=== PATIENT | female | born 1990 | race Caucasian/White ===

== ENCOUNTER 2017-09-16 13:59 | Emergency (ER) | payer BC, OTHER ==
[~2017-09-16] VITALS: Ht 157.5 cm; Wt 77.6 kg
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
--- NOTE | 2017-09-16 14:12 | ED Trauma-Multisystem ---
General Stated Complaint: THROWN FROM HORSE History of Present Illness Date Seen by Provider: Sep 16, 2017 Time Seen by Provider: 14:07 Initial Comments Patient is a 27-year-old female who was brought in by [facility] with complaints head and neck pain after being bucked off a horse. Patient is alert and oriented on arrival and reports that she was thrown over the front of the horse landing on the top of her head. She denies LOC, numbness and tingling in any of her extremities. There is possibility of . Occurred: Just Prior to Arrival Pain/Injury Location: Head, Neck Loss of Consciousness: No Loss of Consciousness Associated Symptoms (Fall): Denies Symptoms Allergies and Home Medications Patient Home Medication List Home Medication List Reviewed: Yes Constitutional: no symptoms reported, see HPI Eyes: No Symptoms Reported, See HPI Ears: No Symptoms Reported, See HPI Nose: No Symptoms Reported, See HPI Mouth: No Symptoms Reported Throat: No Symptoms to Report, See HPI Respiratory: no symptoms reported, see HPI Cardiovascular: No Symptoms Reported, See HPI Gastrointestinal: no symptoms reported, see HPI Genitourinary: no symptoms reported, see HPI Musculoskeletal: see HPI, neck pain Skin: no symptoms reported, see HPI Psychiatric/Neurological: No Symptoms Reported, See HPI Physical Exam General Appearance: No Apparent Distress, WD/WN Head: No Evidence of Injury Eyes: Bilateral Eye PERRL, Bilateral Eye EOMI Ears, Nose, Throat: Hearing Grossly Normal, No Evidence of ENT Injury, No Dental Injury Neck: Other (midthoracic pain on palpation ) Cardiovascular: Regular Rate, Rhythm, No Edema, No Gallop, No JVD, No Murmur, Normal Peripheral Pulses Respiratory: Chest Non Tender, Lungs Clear, Normal Breath Sounds, No Accessory Muscle Use, No Respiratory Distress Gastrointestinal: Normal Bowel Sounds, Non Tender, Soft Back: Other (midthoracic tenderness) Extremity: Normal Capillary Refill, Normal Inspection, Normal Range of Motion, Non Tender Neurologic/Psychiatric: Alert, Oriented x3, Normal Mood/Affect Skin: Normal Color, Warm/Dry Lymphatic: No Adenopathy Progress/Results/Core Measures Results/Orders Lab Results Laboratory Tests Test 09/16/17 14:06 09/16/17 17:09 Range/Units White Blood Count 11.6 H 4.3-11.0 10^3/uL Red Blood Count 4.10 L 4.35-5.85 10^6/uL Hemoglobin 12.6 11.5-16.0 G/DL Hematocrit 36 35-52 % Mean Corpuscular Volume 88 80-99 FL Mean Corpuscular Hemoglobin 31 25-34 PG Mean Corpuscular Hemoglobin Concent 35 32-36 G/DL Red Cell Distribution Width 12.6 10.0-14.5 % Platelet Count 289 130-400 10^3/uL Mean Platelet Volume 10.3 7.4-10.4 FL Neutrophils (%) (Auto) 69 42-75 % Lymphocytes (%) (Auto) 19 12-44 % Monocytes (%) (Auto) 10 0-12 % Eosinophils (%) (Auto) 2 0-10 % Basophils (%) (Auto) 0 0-10 % Neutrophils # (Auto) 8.0 H 1.8-7.8 X 10^3 Lymphocytes # (Auto) 2.2 1.0-4.0 X 10^3 Monocytes # (Auto) 1.1 H 0.0-1.0 X 10^3 Eosinophils # (Auto) 0.2 0.0-0.3 10^3/uL Basophils # (Auto) 0.0 0.0-0.1 10^3/uL Human Chorionic Gonadotropin, Quant 12288 H <5 MIU/ML Serum Test, Qualitative POSITIVE NEGATIVE Urine Color YELLOW Urine Clarity CLEAR Urine pH 6 5-9 Urine Specific [place] 1.010 L 1.016-1.022 Urine Protein NEGATIVE NEGATIVE Urine Glucose (UA) NEGATIVE NEGATIVE Urine Ketones 2+ H NEGATIVE Urine Nitrite NEGATIVE NEGATIVE Urine Bilirubin NEGATIVE NEGATIVE Urine Urobilinogen NORMAL NORMAL MG/DL Urine Leukocyte Esterase 1+ H NEGATIVE Urine RBC (Auto) NEGATIVE NEGATIVE Urine RBC NONE /HPF Urine WBC RARE /HPF Urine Squamous Epithelial Cells 25-50 H /HPF Urine Crystals NONE /LPF Urine Bacteria FEW H /HPF Urine Casts NONE /LPF Urine Mucus NEGATIVE /LPF Urine Culture Indicated NO My Orders Orders - MIGUE PARK APRN Hcg,Qualitative Serum (09/16/17 14:06) Mri Brain W/O Contrast (09/16/17 14:35) Mri Cervical Spine W/O Contras (09/16/17 14:35) Mri Thoracic Spine W/O Con (09/16/17 14:35) Cbc With Automated Diff (09/16/17 14:36) Hcg,Quantitative (09/16/17 14:36) Us Ob Single Fetus<14 [id number] (09/16/17 15:27) Ua Culture If Indicated (09/16/17 16:41) Departure Impression Impression: Primary Impression: Incidental intrauterine Additional Impression: Cervical spine strain Disposition: 01 HOME, SELF-CARE Condition: Stable Departure-Patient Inst. Referrals: NO,LOCAL PHYSICIAN (PCP/Family) Primary Care Physician MIGUE PARK APRN Sep 16, 2017 14:12
[2017-09-16 14:54] LABS: BASOPHILS % (AUTO) 0 % (0-10); EOSINOPHILS # (AUTO) 0.2 10^3/uL (0.0-0.3); EOSINOPHILS % (AUTO) 2 % (0-10); HEMATOCRIT 36 % (35-52); HEMOGLOBIN 12.6 G/DL (11.5-16.0); LYMPHOCYTES # (AUTO) 2.2 X 10^3 (1.0-4.0); LYMPHOCYTES % (AUTO) 19 % (12-44); MEAN CORPUSCULAR HEMOGLOBIN 31 PG (25-34); MEAN CORPUSCULAR HGB CONC 35 G/DL (32-36); MEAN CORPUSCULAR VOLUME 88 FL (80-99); MEAN PLATELET VOLUME 10.3 FL (7.4-10.4); MONOCYTES # (AUTO) 1.1 X 10^3 (0.0-1.0); MONOCYTES % (AUTO) 10 % (0-12); NEUTROPHILS % (AUTO) 69 % (42-75); PLATELET COUNT 289 10^3/uL (130-400); RED CELL DISTRIBUTION WIDTH 12.6 % (10.0-14.5); WHITE BLOOD COUNT 11.6 10^3/uL (4.3-11.0)
--- NOTE | 2017-09-16 15:43 | Diagnostic Imaging Report ---
CLINICAL INDICATION: Patient was thrown from a horse, landed on back hitting back of head. No headaches. Patient complains upper back pain and some neck pain. EXAM: MRI of the brain performed without IV contrast. Sequences include axial DWI, ADC map, axial T2, axial FLAIR, axial T1, axial gradient echo, and sagittal T1. COMPARISON: None. FINDINGS: There is no evidence of acute cerebral infarct, intracranial hemorrhage, or gross mass effect. The brain parenchymal volume appears appropriate for patient's age. There is normal villar-white matter distinction. There is no significant midline shift or herniation. The [place] vascular structures show no gross abnormality as visualized. There is no evidence of hydrocephalus. The basal cisterns are unremarkable. The skull, extracranial soft tissue, and orbits are unremarkable. There is minimal mucosal thickening involving the ethmoid sinus. There is minimal fluid in the right mastoid air cells. IMPRESSION: There is minimal ethmoid sinus mucosal thickening and minimal fluid in the right mastoid air cells. Otherwise unremarkable MRI of the brain. Dictated by: Dictated on workstation # [id number]
--- NOTE | 2017-09-16 15:59 | Diagnostic Imaging Report ---
CLINICAL INDICATION: Patient was thrown from horse, landed on back hitting back of head. Patient has no headaches and no arm/leg pain. Patient complains of upper back pain and some neck pain. EXAM: MRI of the cervical spine performed without IV contrast. Sequences include sagittal T2, sagittal T1, sagittal T2 fat-sat, axial T2. COMPARISON: None. FINDINGS: Of note, the sagittal T2 fat-sat sequence is not fully fat suppressed. Cervical spine has normal alignment and no acute fracture or dislocation. There is no vertebral body marrow edema or abnormal signal. Limited visualization of the posterior fossa is unremarkable. Cervical spinal cord has normal cord caliber and signal. The intervertebral disc heights are well-maintained. There is no disc bulge or annular tear seen. There is no significant degenerative changes. There is no significant central spinal canal or neural foramen narrowing. IMPRESSION: Unremarkable MRI of the cervical spine. Dictated by: Dictated on workstation # [id number]
--- NOTE | 2017-09-16 16:29 | Diagnostic Imaging Report ---
CLINICAL INDICATION: Patient was thrown from a horse. Patient landed on back hitting back of head. No headaches, no arm/leg pain. Patient complains of upper back pain and some neck pain. EXAM: MRI of the thoracic spine performed without IV contrast. Sequences include sagittal T1, sagittal T2, sagittal T2 fat-sat, and axial T2. COMPARISON: None. FINDINGS: Of note, there is incomplete fat saturation on the sagittal T2 fat-sat sequence. Thoracic spine has normal alignment with no fracture or dislocation. There is no abnormal paraspinal soft tissue signal or abnormality. The thoracic spinal cord has normal anatomic appearance with no abnormal cord signal. The thoracic vertebra have normal signal characteristics. The intervertebral disk heights are well-preserved. There is no significant central spinal canal or neural foramen narrowing. IMPRESSION: Unremarkable MRI of the thoracic spine. Dictated by: Dictated on workstation # [id number]
[2017-09-16 17:17] LABS: BILIRUBIN,URINE NEGATIVE (NEGATIVE); CLARITY,URINE CLEAR; COLOR,URINE YELLOW; GLUCOSE, URINE (UA) NEGATIVE (NEGATIVE); KETONES,URINE 2+ (NEGATIVE); LEUKOCYTE ESTERASE ,URINE 1+ (NEGATIVE); NITRITE,URINE NEGATIVE (NEGATIVE); PH,URINE 6 (5-9); PROTEIN,URINE NEGATIVE (NEGATIVE); UROBILINOGEN,URINE NORMAL (NORMAL)
--- NOTE | 2017-09-16 17:22 | Diagnostic Imaging Report ---
PROCEDURE: US OB SINGLE FETUS <14 WKS. TECHNIQUE: Multiple real-time grayscale images were obtained over the gravid uterus in various projections. INDICATION: Trauma, fall from horse. . COMPARISON: None. FINDINGS: A single live intrauterine gestation is seen, with a heart rate of 122 bpm. The crown rump length is 0.76 cm, corresponding with 6 weeks and 5 days gestation. The gestational sac has a normal appearance, oval in shape. The ovaries appear normal bilaterally, with normal vascularity. No subchorionic hemorrhage is seen. The uterus is otherwise unremarkable. The bladder is moderately distended. No free fluid is seen. IMPRESSION: 1. Single live intrauterine gestation measuring at 6 weeks and 5 days, with a heart rate of 122 bpm. Dictated by: Dictated on workstation # [id number]
[2017-09-16 17:30] LABS: BACTERIA,URINE FEW /HPF; SQUAMOUS EPITHELIAL CELL,UR 25-50 /HPF; WBC,URINE RARE /HPF
[2017-09-16 17:45] VITALS: BP 130/89
== END 2017-09-16 17:45 | disposition home or self-care (01) ==
LOC: ER 14:01
DX: S13.4XXA Sprain of ligaments of cervical spine, initial encounter (principal); Z33.1 Pregnant state, incidental; V80.010A Animal-rider injured by fall from or being thrown from horse in noncollision accident, initial encounter
CPT/HCPCS: 36415; 70551; 72141; 72146; 76801; 81000; 84702; 84703; 85025

== ENCOUNTER 2018-05-06 22:56 | Inpatient (IN) | payer BC ==
[~2018-05-06] VITALS: Ht 157.5 cm; Wt 89.9 kg
[2018-05-06 23:25] VITALS: BP 124/82
[2018-05-06] MEDS ORDERED: OXYTOCIN/NORMAL SALINE 500 ML IV SCH (23:30)
[2018-05-07] VITALS (34 sets, daily range): BP systolic 102–147; BP diastolic 52–93
[2018-05-07 01:01] LABS: BASOPHILS % (AUTO) 0 % (0-10); EOSINOPHILS # (AUTO) 0.1 10^3/uL (0.0-0.3); EOSINOPHILS % (AUTO) 1 % (0-10); HEMATOCRIT 32 % (35-52); HEMOGLOBIN 10.4 G/DL (11.5-16.0); LYMPHOCYTES # (AUTO) 1.7 X 10^3 (1.0-4.0); LYMPHOCYTES % (AUTO) 15 % (12-44); MEAN CORPUSCULAR HEMOGLOBIN 29 PG (25-34); MEAN CORPUSCULAR HGB CONC 33 G/DL (32-36); MEAN CORPUSCULAR VOLUME 88 FL (80-99); MEAN PLATELET VOLUME 10.7 FL (7.4-10.4); MONOCYTES # (AUTO) 0.8 X 10^3 (0.0-1.0); MONOCYTES % (AUTO) 7 % (0-12); NEUTROPHILS # (AUTO) 8.6 X 10^3 (1.8-7.8); NEUTROPHILS % (AUTO) 77 % (42-75); PLATELET COUNT 277 10^3/uL (130-400); RED CELL DISTRIBUTION WIDTH 13.9 % (10.0-14.5); WHITE BLOOD COUNT 11.2 10^3/uL (4.3-11.0)
[2018-05-07] MEDS: D5 LR IV SOLUTION 1,000 ML IV SCH ×2 (01:11→07:37)
[2018-05-07] MEDS ORDERED: LACTATED RINGERS 1,000 ML IV ONE (02:49)
[2018-05-07] MEDS ORDERED: SUFENTA 0.6MCG/ML BUPIVA 0.125 100 ML ONE (03:16)
[2018-05-07] MEDS ORDERED: BUPIVACAINE 0.25% 30 ML (SENSORCAINE) VIAL ONE (03:42)
[2018-05-07] MEDS ORDERED: fentaNYL INJECTION 100 MCG/2 ML AMP ONE ×2 (03:42→09:26)
[2018-05-07] MEDS ORDERED: METOCLOPRAMIDE INJ 10 MG/2 ML (REGLAN) IV PRN (04:30)
[2018-05-07] MEDS ORDERED: ONDANSETRON 4 MG/2 ML (SDV) Z0FRAN IV PRN (04:30)
[2018-05-07] MEDS ORDERED: diphenhydrAMINE 50 MG/ML INJ (BENADRYL) IV PRN (04:30)
[2018-05-07] MEDS ORDERED: NALOXONE 0.4 MG/ML 1 ML (NARCAN) VIAL IV PRN ×2 (04:30)
[2018-05-07] MEDS ORDERED: EPIDURAL (SUFENTA 0.6MCG/ML BUPIVA 0.125%) 100 ML BAG EPI PRN (04:30)
[2018-05-07] MEDS ORDERED: CATHETER FLUSH 10 ML SYR IV SCH ×2 (06:00→14:00)
[2018-05-07] MEDS ORDERED: CITRIC ACID/SOB CIT (BICITRA) 30 ML UDC ONE (08:57)
[2018-05-07] MEDS ORDERED: FAMOTIDINE 20MG/2ML IV (PEPCID) ONE (08:57)
[2018-05-07] MEDS: LACTATED RINGERS 1,000 ML IV SCH ×2 (08:59→09:44)
[2018-05-07] MEDS ORDERED: ceFAZolin 2 GM IV Premixed 50 ML ONE (09:05)
[2018-05-07] MEDS ORDERED: OXYTOCIN/NORMAL SALINE 500 ML IV SCH (09:06)
--- NOTE | 2018-05-07 09:09 | History & Physical-OB ---
OB - Chief Complaint & HPI Date/Time Date of Admission: Date of Admission: Date seen by a Provider: May 07, 2018 Time Seen by a Provider: 07:30 Chief Complaint/History OB-Reason for Admission/Chief: Onset of Labor Hx : 1 Hx Para: 0 Expected Date of Delivery: May 11, 2018 Gestational Age in Weeks: 39 Gestational Age in Days: 2 Admission Nurse Assessment Rev: Yes History of Labs AB pos Antibody neg RI RPR NR HBsAg NR HIV NR GC neg GBS neg Allergies and Home Medications Allergies Coded Allergies: naproxen (Verified Allergy, Unknown, 05/06/18) Home Medications No Active Prescriptions or Reported Meds Patient Home Medication List Home Medication List Reviewed: Yes OB - History Hx of Present Care: Yes Ultrasounds: Normal mid trimester US Obstetrical Complications: None Medical Complications: None Patient Past Medical History n/a Social History/Family History HIV/AIDS: No Recent Infectious Disease Expo: No Sexually Transmitted Disease: Yes (chlamidia- 2009) Alcohol Use: Denies Use Recreational Drug Use: No Immunizations Hepatitis A: Yes Hepatitis B: Yes Tetanus Booster (TDap): Less than 5yrs Date of Influenza Vaccine: May 03, 2018 OB - Admission Exam Physical Exam Vitals: Vital Signs 05/07/18 05/07/18 07:30 08:30 Temp 97.9 Pulse 85 Resp 18 B/P (MAP) 114/57 (76) Pulse Ox 100 O2 Delivery Non Rebreather O2 Flow Rate 15.00 HEENT: NCAT Heart: Rhythm Normal Lungs: Clear Abdomen: Gravid Extremities: Normal Reflexes: Normal Cervical Dilatation: 3cm Effacement: 75% Station: -2 Membranes: Ruptured Amniotic Fluid: Clear Heart Rate: 130's Accelerations: Accelerations Present Decelerations: No Decelerations Short Term Variability: Present Long-Term Variability: Average (6-25) Contractions on Admission: < 5 Minutes Apart Intensity: Moderate Labs Laboratory Tests Test 05/07/18 00:45 Range/Units White Blood Count 11.2 H 4.3-11.0 10^3/uL Red Blood Count 3.60 L 4.35-5.85 10^6/uL Hemoglobin 10.4 L 11.5-16.0 G/DL Hematocrit 32 L 35-52 % Mean Corpuscular Volume 88 80-99 FL Mean Corpuscular Hemoglobin 29 25-34 PG Mean Corpuscular Hemoglobin Concent 33 32-36 G/DL Red Cell Distribution Width 13.9 10.0-14.5 % Platelet Count 277 130-400 10^3/uL Mean Platelet Volume 10.7 H 7.4-10.4 FL Neutrophils (%) (Auto) 77 H 42-75 % Lymphocytes (%) (Auto) 15 12-44 % Monocytes (%) (Auto) 7 0-12 % Eosinophils (%) (Auto) 1 0-10 % Basophils (%) (Auto) 0 0-10 % Neutrophils # (Auto) 8.6 H 1.8-7.8 X 10^3 Lymphocytes # (Auto) 1.7 1.0-4.0 X 10^3 Monocytes # (Auto) 0.8 0.0-1.0 X 10^3 Eosinophils # (Auto) 0.1 0.0-0.3 10^3/uL Basophils # (Auto) 0.0 0.0-0.1 10^3/uL OB - Assessment/Plan/Diagnosis Assessment Assessment: active labor Admission Dx 27 yo @ 39.2 Active labor SROM GBS neg Admission Status: Inpatient Order (span 2 midnights) Reason for Inpatient Admission: Active labor at term Plan Plan: Expectant Management LINDSAY ANTONY DO May 07, 2018 9:09 am
--- NOTE | 2018-05-07 09:12 | Progress Note-Standard ---
Standard Progress Note Progress Notes/Assess & Plan Date Seen by a Provider: May 07, 2018 Time Seen by a Provider: 09:00 Progress/Assessment & Plan Laboratory Tests Test 05/07/18 00:45 Range/Units White Blood Count 11.2 H 4.3-11.0 10^3/uL Red Blood Count 3.60 L 4.35-5.85 10^6/uL Hemoglobin 10.4 L 11.5-16.0 G/DL Hematocrit 32 L 35-52 % Mean Corpuscular Volume 88 80-99 FL Mean Corpuscular Hemoglobin 29 25-34 PG Mean Corpuscular Hemoglobin Concent 33 32-36 G/DL Red Cell Distribution Width 13.9 10.0-14.5 % Platelet Count 277 130-400 10^3/uL Mean Platelet Volume 10.7 H 7.4-10.4 FL Neutrophils (%) (Auto) 77 H 42-75 % Lymphocytes (%) (Auto) 15 12-44 % Monocytes (%) (Auto) 7 0-12 % Eosinophils (%) (Auto) 1 0-10 % Basophils (%) (Auto) 0 0-10 % Neutrophils # (Auto) 8.6 H 1.8-7.8 X 10^3 Lymphocytes # (Auto) 1.7 1.0-4.0 X 10^3 Monocytes # (Auto) 0.8 0.0-1.0 X 10^3 Eosinophils # (Auto) 0.1 0.0-0.3 10^3/uL Basophils # (Auto) 0.0 0.0-0.1 10^3/uL This 27-year-old presented in active labor with spontaneous rupture membranes at 9 p.m. last night. The patient was noted to be ulysses regularly however augmentation was started after the patient was admitted due to a dysfunctional contraction pattern. Throughout the night the patient continued to have repetitive prolonged decelerations into the 50s. This happened on 3 separate occasions. This morning on evaluation the patient was found to be 6 cm dilated however station still considerably high at -2. We attempted to augment her labor again this morning after stopping the Pitocin last night due to intolerance in the form of prolonged heart rate deceleration. About 1 hour after starting 2 milliunits of Pitocin another prolonged deceleration lasting approximately 6 minutes down to the 50s to 60s was noted, I was present to evaluate the patient and placed a scalp electrode to confirm heart rate tracing. The patient continued to still be remote from delivery I discussed the patient proceeding with emergency due to intolerance of labor. Risk of the procedure was discussed the patient in detail all of her questions were answered and consent was obtained bedside by the nurses the OR crew was contacted. We will proceed as soon as possible when OR crew is available and ready LINDSAY ANTONY DO May 07, 2018 9:12 am
[2018-05-07] MEDS ORDERED: TETANUS,DIPTH,PERTUSS P/F (BOOSTRIX) 0.5 ML VIAL IM SCH (09:15)
[2018-05-07] MEDS ORDERED: MEASLES,MUMPS,RUBELLA 1 EA INJ SC SCH (09:15)
[2018-05-07] MEDS ORDERED: HYDROmorphone 2 MG/ML VIAL (DILAUDID) IV PRN (09:15)
[2018-05-07] MEDS ORDERED: ONDANSETRON 4 MG/2 ML (SDV) Z0FRAN IVP PRN (09:15)
[2018-05-07] MEDS ORDERED: LIDOCAINE PF 2% 5 ML (XYLOCAINE) VIAL ONE (09:24)
--- NOTE | 2018-05-07 09:45 | Discharge Inst-Women's Service ---
Discharge Inst-Women's Serv Depart Medication/Instructions New, Converted or Re-Newed RX: RX on Chart Consults/Follow Up Additional Follow Up: Yes Orders/Referrals Dr. Astorga in 7-10 days and in 6 weeks Activity Activity: Activity as Tolerated Driving Instructions: No Driving for 1 Week NO SMOKING: NO SMOKING Nothing Inside Vagina: No Douching, No [place], No Tampons Diet Discharge Diet: No Restrictions Symptoms to Report to : Bleeding Excessive, Pain Increased, Fever Over 101 Degrees F, Vaginal Bleeding Increase, Questions/Concerns For Any Problems or Questions: Contact Your Physician Skin/Wound Care Infection Signs and Symptoms: Increased Redness, Foul Odor of Wound, Increased Drainage, Skin Itchy or Has a Rash, Increased Swelling, Temperature Above 101 F Operative Area Clean and Dry: Keep Incision Clean/Dry Stitches/Chip/Dermabond: Dermabond, Care of Stitches Bathing Instructions: LINDSAY Horvath DO May 07, 2018 09:45
[2018-05-07] MEDS ORDERED: IBUP-844 PO (09:46)
[2018-05-07] MEDS ORDERED: ACHD5005 PO (09:46)
[2018-05-07] MEDS ORDERED: DOCU100C37 PO (09:46)
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
[2018-05-07] MEDS ORDERED: DEXAMETHASONE 10 MG/ML (DECADRON) 1 ML VIAL ONE (10:31)
[2018-05-07] MEDS ORDERED: ONDANSETRON 4 MG/2 ML (SDV) Z0FRAN ONE (10:31)
[2018-05-07] MEDS ORDERED: OXYTOCIN/NORMAL SALINE 1,000 ML IV ONE (10:31)
[2018-05-07] MEDS: KETOROLAC 30 MG/ML VIAL IVP SCH ×3 (11:55→23:34)
[2018-05-07] MEDS: HYDROcodone/APAP 5 MG/325 MG (LORTAB) TAB PO PRN ×2 (15:12→20:25)
--- NOTE | 2018-05-07 15:37 | OPERATIVE REPORT ---
DATE OF SERVICE: 05/07/2018 PREOPERATIVE DIAGNOSES: 1. A 27-year-old G1, P0 at 39 weeks and 2 days' gestation. 2. intolerance of labor. POSTOPERATIVE DIAGNOSES: 1. A 27-year-old G1, P0 at 39 weeks and 2 days' gestation. 2. intolerance of labor. PROCEDURE PERFORMED: Primary low transverse section. SURGEON: Luis Antony DO. ANESTHESIA: Epidural, which was bolused. ESTIMATED BLOOD LOSS: 400 mL. URINE OUTPUT: 400 mL clear at the end of the procedure. FLUIDS: 1100 mL lactated Ringer solution. FINDINGS: A live male , weight was pending and Apgars of 9 and 9. Grossly normal appearing uterus, bilateral fallopian tubes and ovaries. INDICATIONS FOR PROCEDURE: Please see my preoperative note for complete details pertaining to indications. There were repetitive prolonged decelerations of the heart rate down to the 50s. Briefly, the indication for was discussed due to the patient being remote from delivery. She was still 6 cm and -2 station with quite a bit of station to go before delivering vaginally. INDICATIONS: After indication was discussed, risks of the procedure were discussed with the patient in detail including risk of bleeding, infection, damage to surrounding structures including, but not limited to bowel, bladder, ureter, kidneys, possible postoperative complications, postoperative recovery timeframe, risk from anesthesia and need for possible blood transfusion and even . After everything was discussed with the patient in detail and all of her questions were answered, consent was obtained. The patient was taken to the operating room. OPERATIVE REPORT IN DETAIL: Once in the operating room, epidural anesthesia was bolused and found to be adequate. She was placed in supine position with a leftward tilt, prepped and draped in normal sterile fashion. A timeout was performed. Anesthesia was tested. I then proceeded with making a Pfannenstiel skin incision with a knife and carried down to underlying fascia using Bovie cautery. The fascial incision was extended laterally using Bovie cautery. Superior aspect of the fascial incision was then grasped with Jean Pierre clamps, tented up and dissected off the underlying rectus muscles. The inferior aspect of the fascial incision was then grasped with Jean Pierre clamps, tented up and dissected off the underlying rectus muscles. The rectus muscle was then dissected down the midline using Campuzano scissors to expose the peritoneum which I entered using blunt traction, extended using blunt extension. An Yosvany ring retractor was then placed in the peritoneal incision, which offered excellent lateral sidewall retraction. I then identified the lower uterine segment, which was found to be thinned out and making an incision to the vesicouterine peritoneum and bluntly dissected off the lower uterine segment after which I proceeded with my myotomy until the membranes were visualized, at which point I extended the uterine incision laterally and superiorly using bandage scissors. The infant was found in the vertex presentation, occiput posterior with a body cord noted, shoulder cord noted and a possible nuchal cord. After elevating the infant's head to the incision, it is delivered through the incision where the naris and oropharynx were bulb suctioned. There was a nuchal cord reduced x1 and another body cord reduced at that time. The anterior and posterior shoulders were delivered and the was then brought to the operative field where the cord was doubly clamped and cut and was handed off to Dr. Laughlin who was present for delivery. Cord blood was collected. Three-vessel cord was intact, placenta delivered spontaneously thereafter. IV Pitocin was initiated to facilitate uterine contraction. Uterine fundus was firm with bimanual massage. Uterus was then exteriorized and cleared of all endometrial clots and debris. I then proceeded with closing the uterine incision using #0 Vicryl suture in a running locked fashion. A second layer of imbricating #0 Monocryl was placed. Excellent hemostasis was noted after doing this. I then placed the uterus back in the pelvis and copiously irrigate the pelvis using normal saline. Once again, there was no active bleeding noted from any of my dissection planes. I then placed Interceed antiadhesive over my low transverse incision and then proceeded with closing the peritoneum using 3-0 Vicryl suture in running fashion after removing the Yosvany ring retractor. The rectus muscle reapproximated using 3-0 Vicryl suture in interrupted fashion. The fascia was reapproximated using #0 Vicryl suture in running fashion. Subcutaneous tissue was reapproximated using 3-0 plain interrupted subcutaneous stitch and skin reapproximated using 4-0 Monocryl running subcuticular. Dermabond was applied to the incision, sterile dressing with adhesive white tape. The patient tolerated the procedure well and sent to recovery in stable condition. Lap and sponge counts were correct at the end of the procedure. Instrument counts correct as well. Two grams of Ancef given preoperatively for infection prophylaxis. Job ID: [id number] DocumentID: [id number] Dictated Date: 05/07/2018 10:31:49 Business Excellence Manager Date: 05/07/2018 15:36:43 Dictated By: LUIS ANTONY DO
[2018-05-07] MEDS: DOCUSATE SODIUM 100 MG (COLACE) CAP PO SCH (22:00)
[2018-05-08 02:25] VITALS: BP 100/57
[2018-05-08] MEDS: HYDROcodone/APAP 5 MG/325 MG (LORTAB) TAB PO PRN ×4 (02:28→15:11)
[2018-05-08] MEDS: KETOROLAC 30 MG/ML VIAL IVP SCH (05:44)
[2018-05-08 05:48] LABS: BASOPHILS % (AUTO) 0 % (0-10); EOSINOPHILS # (AUTO) 0.1 10^3/uL (0.0-0.3); EOSINOPHILS % (AUTO) 1 % (0-10); HEMATOCRIT 29 % (35-52); HEMOGLOBIN 9.4 G/DL (11.5-16.0); LYMPHOCYTES # (AUTO) 1.8 X 10^3 (1.0-4.0); LYMPHOCYTES % (AUTO) 11 % (12-44); MEAN CORPUSCULAR HEMOGLOBIN 29 PG (25-34); MEAN CORPUSCULAR HGB CONC 33 G/DL (32-36); MEAN CORPUSCULAR VOLUME 89 FL (80-99); MONOCYTES # (AUTO) 1.5 X 10^3 (0.0-1.0); MONOCYTES % (AUTO) 10 % (0-12); NEUTROPHILS # (AUTO) 12.3 X 10^3 (1.8-7.8); NEUTROPHILS % (AUTO) 78 % (42-75); PLATELET COUNT 242 10^3/uL (130-400); RED BLOOD COUNT 3.21 10^6/uL (4.35-5.85); RED CELL DISTRIBUTION WIDTH 13.9 % (10.0-14.5); WHITE BLOOD COUNT 15.7 10^3/uL (4.3-11.0)
[2018-05-08 06:35] LABS: LYMPHOCYTES % (MANUAL) 10 %; MONOCYTES % (MANUAL) 6 %; MYELOCYTES % 1 %; NEUTROPHILS % (MANUAL) 83 %; TOXIC GRANULATION/VACUOLAZATIO 3+
[2018-05-08 09:10] VITALS: BP 107/75
--- NOTE | 2018-05-08 09:24 | Postpartum Progress Note ---
Note Note Day # 1 Subjective: Patient is without complaints. Ambulating, voiding. Tolerating a regular diet without nausea or vomiting. Normal lochia. Pain is well controlled with oral pain medications. Objective: Vital Sign - Last 24 Hours 05/07/18 05/07/18 05/07/18 05/07/18 09:30 09:43 13:20 15:33 Temp 99.6 Pulse 81 80 96 Resp 18 18 18 B/P (MAP) 119/66 (83) 115/58 (77) 129/65 (86) Pulse Ox 96 O2 Delivery Non Rebreather Non Rebreather Room Air Room Air O2 Flow Rate 15.00 15.00 05/07/18 05/07/18 05/08/18 17:30 21:30 02:25 Temp 98.6 98.7 99.2 Pulse 80 91 93 Resp 18 18 18 B/P (MAP) 106/64 (78) 108/72 (84) 100/57 (71) Pulse Ox 97 97 97 O2 Delivery Room Air Room Air Room Air Intake and Output 05/07/18 05/07/18 05/08/18 15:00 23:00 07:00 Intake Total 50 ml 600 ml 800 ml Output Total 800 ml 400 ml 2100 ml Balance -750 ml 200 ml -1300 ml Physical Exam: General - Alert and oriented, no apparent distress Abdomen - Soft, appropriately tender to palpation, non-distended, fundus firm at umbilicus Extremities - no edema, negative Shakila's bilaterally Incision- c/d/i Assessment: POD 1 PLTCS Acute blood loss anemia Plan: Routine care. Encourage breast feeding. Encourage ambulation. Ferrous sulfate supplementation. Plan for discharge tomorrow Vitals - Labs Vital Signs - I&O Vital Signs Date Time Temp Pulse Resp B/P (MAP) Pulse Ox O2 Delivery O2 Flow Rate FiO2 05/08/18 02:25 99.2 93 18 100/57 (71) 97 Room Air 05/07/18 21:30 98.7 91 18 108/72 (84) 97 Room Air 05/07/18 17:30 98.6 80 18 106/64 (78) 97 Room Air 05/07/18 15:33 Room Air 05/07/18 13:20 99.6 96 18 129/65 (86) 96 Room Air 05/07/18 09:43 80 18 115/58 (77) Non Rebreather 15.00 05/07/18 09:30 81 18 119/66 (83) Non Rebreather 15.00 I & O 05/08/18 07:00 Intake Total 1450 ml Output Total 3300 ml Balance -1850 ml Labs Laboratory Tests 05/08/18 05:24: White Blood Count 15.7H, Red Blood Count 3.21L, Hemoglobin 9.4L, Hematocrit 29L , Mean Corpuscular Volume 89, Mean Corpuscular Hemoglobin 29, Mean Corpuscular Hemoglobin Concent 33, Red Cell Distribution Width 13.9, Platelet Count 242, Mean Platelet Volume 11.0H, Neutrophils (%) (Auto) 78H, Lymphocytes (%) (Auto) 11L, Monocytes (%) (Auto) 10, Eosinophils (%) (Auto) 1, Basophils (%) (Auto) 0, Neutrophils # (Auto) 12.3H, Lymphocytes # (Auto) 1.8, Monocytes # (Auto) 1.5H, Eosinophils # (Auto) 0.1, Basophils # (Auto) 0.0, Neutrophils % (Manual) 83, Lymphocytes % (Manual) 10, Monocytes % (Manual) 6, Myelocytes % 1, Toxic Granulation 3+, Dohle Bodies MODERATE LINDSAY ANTONY DO May 08, 2018 9:24 am
[2018-05-08] MEDS: DOCUSATE SODIUM 100 MG (COLACE) CAP PO SCH ×2 (10:15→21:32)
[2018-05-08] MEDS: IBUPROFEN 600 MG (MOTRIN) TAB PO SCH ×2 (11:15→19:24)
--- NOTE | 2018-05-08 12:45 | Anesthesia-Regional Post-Op ---
Regional Patient Condition Mental Status: Alert, Oriented x3 Circulation: Same as Pre-Op Headache: Absent Sensation: Full Recovery Motor Block: Absent Post Op Complications Complications None Follow Up Care/Instructions Patient Instructions None needed. Anesthesia/Patient Condition Patient is doing well, no complaints, stable vital signs, no apparent adverse anesthesia problems. No complications reported per nursing. CRISTINE IVERSON CRNA May 08, 2018 12:45
[2018-05-08 14:15] VITALS: BP 105/68
[2018-05-08 20:15] VITALS: BP 103/69
[2018-05-09] MEDS: HYDROcodone/APAP 5 MG/325 MG (LORTAB) TAB PO PRN ×2 (00:30→12:06)
[2018-05-09 03:00] VITALS: BP 111/71
[2018-05-09] MEDS: IBUPROFEN 600 MG (MOTRIN) TAB PO SCH ×3 (03:01→15:11)
--- NOTE | 2018-05-09 08:17 | Postpartum Progress Note ---
Note Note Day # 2 Subjective: Patient is without complaints. Ambulating, voiding. Tolerating a regular diet without nausea or vomiting. Normal lochia. Pain is well controlled with oral pain medications. Objective: Vital Sign - Last 24 Hours 05/08/18 05/08/18 05/08/18 05/09/18 09:10 14:15 20:15 03:00 Temp 98.0 97.5 98.6 98.5 Pulse 87 86 85 95 Resp 18 20 18 18 B/P (MAP) 107/75 (86) 105/68 (80) 103/69 (80) 111/71 (84) Pulse Ox 99 O2 Delivery Room Air Room Air Room Air Room Air Physical Exam: General - Alert and oriented, no apparent distress Abdomen - Soft, appropriately tender to palpation, non-distended, fundus firm at umbilicus Extremities - no edema, negative Shakila's bilaterally Incision- c/d/i Assessment: POD 2 PLTCS Acute blood loss anemia Plan: Routine care. Encourage breast feeding. Encourage ambulation. Ferrous sulfate supplementation. Plan for discharge today Vitals - Labs Vital Signs - I&O Vital Signs Date Time Temp Pulse Resp B/P (MAP) Pulse Ox O2 Delivery O2 Flow Rate FiO2 05/09/18 03:00 98.5 95 18 111/71 (84) Room Air 05/08/18 20:15 98.6 85 18 103/69 (80) Room Air 05/08/18 14:15 97.5 86 20 105/68 (80) Room Air 05/08/18 09:10 98.0 87 18 107/75 (86) 99 Room Air LINDSAY ANTONY DO May 09, 2018 8:17 am
[2018-05-09] MEDS: DOCUSATE SODIUM 100 MG (COLACE) CAP PO SCH (08:54)
[2018-05-09 08:57] VITALS: BP 117/80
[2018-05-09 15:10] VITALS: BP 113/74
--- NOTE | 2018-05-16 10:16 | Physician Query-Final Dx ---
Final Diagnosis Give Final Diagnosis Please give Final Diagnosis JEANNIE SALAMANCA May 16, 2018 10:16
== END 2018-05-09 16:39 | disposition home or self-care (01) | DRG 787 ==
LOC: LDRP 22:56 → WSo 22:56 → LDRP 05-07 09:06
PROVIDERS: ADMIT Obstetrics & Gynecology; ATTEND Obstetrics & Gynecology
PROC: 10D00Z1 Extraction of Products of Conception, Low, Open Approach (ICD-10-PCS; principal; 2018-05-07 09:44)
DX: O76 Abnormality in fetal heart rate and rhythm complicating labor and delivery (principal); O69.81X0 Labor and delivery complicated by cord around neck, without compression, not applicable or unspecified; O69.82X0 Labor and delivery complicated by other cord entanglement, without compression, not applicable or unspecified; O90.81 Anemia of the puerperium; D62 Acute posthemorrhagic anemia; Z37.0 Single live birth; Z3A.39 39 weeks gestation of pregnancy
CPT/HCPCS: 36415; 85007; 85025; 85027; 86850; 86900; 86901; 94664; 99212

== ENCOUNTER → 2023-04-07 | Outpatient (CLI) | payer BC ==
[~2023-04-07] MED LIST: ACHD5005 PO; DOCU100C37 PO; IBUP-844 PO
--- NOTE | 2023-04-07 13:19 | Diagnostic Imaging Report ---
INDICATION: patient, survey. TECHNIQUE: Multiple real-time grayscale images were obtained over the gravid uterus. COMPARISON: None during this . FINDINGS: A single live intrauterine fetus is seen measuring 19 weeks 3 days in size by composite measurements. The fetus is in breech presentation at this time. Amniotic fluid index is 14.9 cm. Placenta is posterior with no evidence of previa. heart rate is 142 BPM. Cervical length is 4.6 cm. The distance from the internal cervical os to the placental tip was 7.4 cm. survey showed no detectable abnormality. Normal-appearing kidneys and bladder were seen. Intracranial ventricles appear normal. stomach appeared normal. Four-chamber heart view appeared normal. Three-vessel cord and cord insertion appeared normal. There is a normal appearance of the spine. Maternal adnexa were not well seen. Biometrical measurements are as follows: Biparietal 4.36 cm, age 19 weeks 2 days. Head circumference 16.57 cm, age 19 weeks 2 days. Abdominal circumference 13.86 cm, age 19 weeks 2 days. Femur length 3.10 cm, age 19 weeks 5 days. Sonographic estimate age: 19 weeks 3 days. Sonographic estimated date of delivery: 08/29/2023. Estimated Weight: 291 gm (+/- 43 gm). LMP percentile: 17%. heart rate: 142 beats per minute. number: 1 of 1. IMPRESSION: Single live intrauterine fetus measuring 19 weeks 3 days in size. There was no detectable abnormality. Dictated by: Dictated on workstation # [id number]
== END ==
LOC: RAD 09:41
PROVIDERS: ATTEND Nurse Practitioner Women's Health
DX: Z36.9 Encounter for antenatal screening, unspecified (principal); Z3A.19 19 weeks gestation of pregnancy
CPT/HCPCS: 76805